=== PATIENT | male | born 1995 | race Caucasian/White ===

== ENCOUNTER 2017-07-22 20:06 | Emergency (ER) | payer SELFPAY ==
[~2017-07-22] VITALS: Ht 180.3 cm; Wt 70.0 kg
[2017-07-22] MEDS ORDERED: MORPHINE SULFATE 4 MG/ML CPJ (NOT FOR IM USE) IV STA (20:59)
[2017-07-22] MEDS ORDERED: KETOROLAC 30MG/ML VIAL IV STA (20:59)
[2017-07-22] MEDS ORDERED: ONDANSETRON HCL 4MG/2ML VIAL IV STA (20:59)
[2017-07-22] MEDS ORDERED: SODIUM CHLORIDE 0.9% 1,000 ML IV ONE (20:59)
[2017-07-22] MEDS ORDERED: PROPOFOL 200MG/20ML VIAL IV ONE (21:45)
[2017-07-22] MEDS ORDERED: ONDANSETRON HCL 4MG/2ML VIAL IV ONE (21:45)
[2017-07-22 23:54] VITALS: BP 136/86
== END 2017-07-23 01:44 | disposition home or self-care (01) ==
LOC: ER 07-23 01:02
DX: S53.105A Unspecified dislocation of left ulnohumeral joint, initial encounter (principal); Y93.66 Activity, soccer; Y92.838 Other recreation area as the place of occurrence of the external cause
CPT/HCPCS: 24600; 73070; 73080; 73090; 96361; 96374; 96375; 99285; J1885; J2270; J2405; J7030; Z7610; J2704